=== PATIENT | female | born 1985 | race Caucasian/White ===

== ENCOUNTER 2016-05-18 02:30 | Inpatient (IN) | payer MEDICAID ==
[2016-05-18] MEDS ORDERED: MORPHINE SULFATE INJ 2 MG/ML DISP.SYRIN IV ONE (03:00)
[2016-05-18] MEDS ORDERED: ONDANSETRON HCL/PF 4 MG/2 ML VIAL IVP ONE (03:00)
[2016-05-18] MEDS ORDERED: VANCOMYCIN 1 GM in IV D5W 250 ML IV ONE (03:00)
[2016-05-18] MEDS ORDERED: VANCOMYCIN 1 GM VIAL ONE (03:08)
[2016-05-18] MEDS ORDERED: MORPHINE SULFATE INJ 2 MG/ML DISP.SYRIN ONE (03:08)
[2016-05-18] MEDS ORDERED: IV SET PRIMARY PUMP SET 1 EA INFUS.SET MC ONE ×2 (03:09→11:16)
[2016-05-18] MEDS ORDERED: IV D5W 250 ML IV ONE (03:09)
[2016-05-18] MEDS ORDERED: ONDANSETRON HCL/PF 4 MG/2 ML VIAL ONE (03:09)
[2016-05-18] MEDS ORDERED: ZOLPIDEM TARTRATE 5 MG TABLET PO PRN (04:00)
[2016-05-18] MEDS ORDERED: Z GUARD REMEDY 2 OZ OINT TP PRN (04:00)
[2016-05-18] MEDS ORDERED: MAG HYDROX/AL HYDROX/SIMETH 30 ML UDC PO PRN (04:00)
[2016-05-18] MEDS ORDERED: ONDANSETRON HCL/PF 4 MG/2 ML VIAL IVP PRN (04:00)
[2016-05-18] MEDS ORDERED: MAGNESIUM HYDROXIDE 30 ML UDC PO PRN (04:00)
[2016-05-18] MEDS ORDERED: ACETAMINOPHEN 325 MG TABLET PO PRN (04:00)
[2016-05-18] MEDS ORDERED: HYDROCODONE/APAP 5/325MG 1 EACH TABLET PO PRN (04:00)
[2016-05-18] MEDS ORDERED: MORPHINE SULFATE INJ 2 MG/ML DISP.SYRIN IV PRN (04:00)
[2016-05-18] MEDS ORDERED: SPIR25TA PO (04:38)
[2016-05-18] MEDS ORDERED: FEE PK DOSING 1 MIN EA MC ONE (08:21)
[2016-05-18] MEDS ORDERED: SECONDARY IV SET 1 EA INFUS.SET MC ONE (11:16)
[2016-05-18] MEDS ORDERED: SET RED CAP 1 EA INFUS.SET MC ONE (11:16)
[2016-05-18] MEDS: VANCOMYCIN 1 GM in IV D5W 250 ML IV SCH ×2 (11:40→20:34)
[2016-05-18] MEDS: IV NS 0.9% 1,000 ML IV PRN (11:40)
[2016-05-18] MEDS ORDERED: PIPERACILLIN /TAZOBACTAM 3.375 G in IV D5W 50 ML IV SCH (12:00)
[2016-05-18] MEDS: DOCUSATE SODIUM 250 MG CAPSULE PO SCH (17:23)
[2016-05-18] MEDS: LEVOFLOXACIN (500MG) 500 MG TABLET PO SCH (17:23)
[2016-05-18] MEDS ORDERED: IV NS 0.9% 1,000 ML ONE (23:59)
[2016-05-19] MEDS: IV NS 0.9% 1,000 ML IV PRN ×2 (00:04→17:39)
[2016-05-19] MEDS: VANCOMYCIN 1 GM in IV D5W 250 ML IV SCH ×3 (04:38→20:00)
[2016-05-19] MEDS: DOCUSATE SODIUM 250 MG CAPSULE PO SCH ×2 (10:06→16:50)
[2016-05-19] MEDS: LEVOFLOXACIN (500MG) 500 MG TABLET PO SCH (16:50)
[2016-05-19] MEDS ORDERED: LACTOBACILLUS RHAMNOSUS GG 1 EACH CAP.SPRINK PO SCH (17:00)
== END 2016-05-19 20:55 | disposition left against medical advice (07) | DRG 383 ==
DX: L03.114 Cellulitis of left upper limb (principal); R78.81 Bacteremia; L03.113 Cellulitis of right upper limb; F17.210 Nicotine dependence, cigarettes, uncomplicated; K59.00 Constipation, unspecified; D72.829 Elevated white blood cell count, unspecified; F11.20 Opioid dependence, uncomplicated; L02.414 Cutaneous abscess of left upper limb; L02.413 Cutaneous abscess of right upper limb

== ENCOUNTER 2021-02-12 10:30 | Emergency (ER) | payer MEDICAID, OTHER ==
[~2021-02-12] VITALS: Ht 170.2 cm; Wt 65.8 kg
[~2021-02-12 10:30] MED LIST: SPIR25TA PO
--- NOTE | 2021-02-12 10:30 | NUR ---
PT BIB SELF C/O GENERALIZED ITCHING, RASH X 1 MONTH. PT IS AAOX4, NOT IN RESPIRATORY DISTRESS, V/S STABLE, KEPT RESTED AND COMFORTABLE. WILL CONTINUE TO MONITOR.
--- NOTE | 2021-02-12 11:14 | NUR ---
SEEN AND EXAMINED BY .
--- NOTE | 2021-02-12 11:21 | NUR ---
ER PHLEB AT BEDSIDE FOR BLOOD DRAW.
--- NOTE | 2021-02-12 11:35 | NUR ---
URINE SPECIMEN OBTAINED AND SENT TO LAB.
[2021-02-12 11:42] LABS: HEMOGLOBIN 13.4 g/dL (11.5-14.8)
[2021-02-12 11:47] LABS: BASOPHILS # (AUTO) 0.1 K/uL (0.0-0.2); BASOPHILS % (AUTO) 0.9 % (0.0-2.0); EOSINOPHILS % (AUTO) 0.5 % (0.0-6.0); HEMATOCRIT 41 % (33-45); LYMPHOCYTES # (AUTO) 4.2 K/uL (0.8-4.8); LYMPHOCYTES % (AUTO) 34.3 % (20.0-44.0); MEAN CORPUSCULAR HGB CONC 33 g/dl (31.0-36.0); MEAN CORPUSCULAR VOLUME 89 fL (82-100); MONOCYTES # (AUTO) 0.6 K/uL (0.1-1.30); MONOCYTES % (AUTO) 5.2 % (2.0-12.0); NEUTROPHILS # (AUTO) 7.2 K/uL (1.8-8.9); NEUTROPHILS % (AUTO) 59.1 % (43.0-81.0); PLATELET COUNT (AUTO) 328 K/uL (150-450); WHITE BLOOD COUNT (AUTO) 12.2 K/uL (4.3-11.0)
[2021-02-12 11:49] LABS: BILIRUBIN,URINE Negative (NEGATIVE); COLOR,URINE YELLOW (YELLOW); LEUKOCYTE ESTERASE ,URINE Negative (NEGATIVE); NITRITE, URINE Negative (NEGATIVE); PROTEIN,URINE Negative (NEGATIVE); UGLUCOSE Negative (NEGATIVE); UROBILINOGEN,URINE 0.2 EU/dL (0.2)
[2021-02-12 11:59] LABS: CARBON DIOXIDE 27 mmol/L (21-32); CHLORIDE 102 mmol/L (98-107); CREATININE 0.8 mg/dL (0.6-1.3); GLUCOSE 102 mg/dL (74-106); POTASSIUM 3.5 mmol/L (3.5-5.1); SODIUM SERUM 139 mmol/L (136-145); UREA NITROGEN, BLOOD 13 mg/dL (7-18)
[2021-02-12 12:05] LABS: ALANINE AMINOTRANSFERASE 57 U/L (12-78); ALBUMIN 3.8 g/dL (3.4-5.0); ALKALINE PHOSPHATASE 57 U/L (46-116); ASPARTATE AMINOTRANSFERASE 33 U/L (15-37); BILIRUBIN,DIRECT 0.1 mg/dL (0.0-0.2); BILIRUBIN,TOTAL 0.4 mg/dL (0.2-1.0); LIPASE 118 U/L (73-393); TOTAL PROTEIN, SERUM 8.2 g/dL (6.4-8.2)
--- NOTE | 2021-02-12 12:25 | NUR ---
Patient does not wish to proceed with medical care recommended by Dr. Eng. Patient given information related to possible complications, up to and including , which could occur as a result of leaving the hospital at this time. Patient verbalizes understanding of risks involved due to leaving against medical advice. Patient has signed AMA form.
[2021-02-12 12:26] VITALS: BP 119/64
== END 2021-02-12 12:26 | disposition home or self-care (01) ==
LOC: ER 10:34
DX: R53.1 Weakness (principal); F17.200 Nicotine dependence, unspecified, uncomplicated; Z98.890 Other specified postprocedural states; Z79.899 Other long term (current) drug therapy
CPT/HCPCS: 36415; 80048-TC; 80076-TC; 83690-TC; 84484-TC; 84703-TC; 85025-TC

== ENCOUNTER 2023-01-12 22:07 | Emergency (ER) | payer OTHER ==
[~2023-01-12] VITALS: Ht 170.2 cm; Wt 61.2 kg
[2023-01-12 22:52] VITALS: BP 120/79; TEMP 98.6; O2SAT 100
[2023-01-12] MEDS ORDERED: AMOX-430 PO (23:50)
[2023-01-12] MEDS ORDERED: METR-147 PO (23:50)
== END 2023-01-13 00:06 | disposition home or self-care (01) ==
LOC: EDUNIT# 22:07 → ER 22:10
DX: N76.0 Acute vaginitis (principal); F17.200 Nicotine dependence, unspecified, uncomplicated; Z60.2 Problems related to living alone